=== PATIENT | female | born 1995 | race Caucasian/White ===

== ENCOUNTER 2019-08-26 07:00 | Emergency (ER) | payer OTHER ==
[~2019-08-26] VITALS: Ht 167.6 cm; Wt 64.4 kg
[2019-08-26 07:04] VITALS: BP 110/61
--- NOTE | 2019-08-26 07:25 | NUR ---
PATIENT PRESENTS TO ED WITH L WRIST PAIN X 2 DAYS. STATES PAIN IS SHARP, 10/10 UPON MOVEMENT. DENIES INJURY. WORKS A [employer]. NO MEDS TAKEN. VSS; PATIENT POSITIONED FOR COMFORT; HOB ELEVATED; BEDRAILS UP X2; BED DOWN. ER MD SAW PATIENT AT BEDSIDE. PMH: PT IS 31 WEEKS MEDS: ALLERGIES: SHELLFISH
[2019-08-26] MEDS ORDERED: ACETAMINOPHEN EXTRA STRENGTH 500 MG TAB PO ONE (07:30)
--- NOTE | 2019-08-26 07:39 | NUR ---
APPLIED THUMB SPICA SPLINT TO LEFT HAND WITHOUT ANY ISSUES
[2019-08-26 07:43] VITALS: BP 110/61
--- NOTE | 2019-08-26 07:44 | NUR ---
Patient discharged with v/s stable. Written and verbal after care instructions given and explained. Patient verbalized understanding. Ambulatory with steady gait. All questions addressed prior to discharge. Advised to follow up with PMD.
== END 2019-08-26 07:40 | disposition home or self-care (01) ==
LOC: MED 07:00
DX: O9A.213 Injury, poisoning and certain other consequences of external causes complicating pregnancy, third trimester (principal); M25.532 Pain in left wrist; M65.4 Radial styloid tenosynovitis [de Quervain]; Z3A.31 31 weeks gestation of pregnancy
CPT/HCPCS: 99283